=== PATIENT | male | born 1975 | race Caucasian/White ===

== ENCOUNTER → 2020-08-23 19:35 | Outpatient (ROUT) | payer SELFPAY | PROVIDERS: Visit Provider Dermatology | DX: L02.219 Cutaneous abscess of trunk, unspecified (principal) | CPT/HCPCS: 87070; 87075; 87205 ==

== ENCOUNTER → 2022-01-01 09:36 | Outpatient (CLI) | payer OTHER, SELFPAY ==
[2022-01-01 10:52] LABS: Add Manual Diff / Slide Review NO; Basophils Absolute Auto 100 /uL (0-100); Basophils Percent Auto 1.9 % (0-2); Eosinophils Absolute Auto 100 /uL (0-450); Eosinophils Percent Auto 1.1 % (2-4); Hematocrit 44.1 % (41-53); Lymphocytes Absolute Auto 1600 /uL (1100-4500); Lymphocytes Percent Auto 28.4 % (25-40); Mean Corpuscular HGB Conc 34.1 % (30-36); Mean Corpuscular Hemoglobin 30.1 PG (26-34); Mean Corpuscular Volume 88.1 fL (80-100); Monocytes Absolute Auto 600 /uL (0-900); Monocytes Percent Auto 11.2 % (3-14); Neutrophils Absolute Auto 3100 /uL (1500-7000); Neutrophils Percent Auto 57.4 % (50-75); Platelet Count 196 X10^3/uL (150-400); Red Cell Distribution Width 13.1 % (11.6-14.8); White Blood Cell Count 5.5 X10^3/uL (4.5-11.0)
[2022-01-01 11:08] LABS: Alanine Aminotransferase 21 IU/L (<50); Albumin 4.3 g/dL (3.5-5.0); Albumin Globulin Ratio 1.4 (1.0-2.8); Alkaline Phosphatase 106 U/L (38-126); Aspartate Aminotransferase 26 IU/L (17-59); BUN Creatinine Ratio 14.4 (6-22); Bilirubin Total 0.7 mg/dL (0.2-1.3); Blood Urea Nitrogen 14 mg/dL (9-20); Calcium 9.5 mg/dL (8.4-10.2); Carbon Dioxide 27 mmol/L (22-32); Chloride 103 mmol/L (98-107); Cholesterol 205 mg/dL (140-199); Estimated Glomerular Filt Rate > 60 mL/min (>60); Globulin 3.1 g/dL (1.7-4.1); Glucose 94 mg/dL (70-100); HDL Cholesterol 44 mg/dL (40-60); HEMOLYSIS < 15 (0-50); LDL Cholesterol Calculated 121 mg/dL (<100); Potassium 4.5 mmol/L (3.4-5.1); Sodium 138 mmol/L (137-145); Total Protein 7.4 g/dL (6.3-8.2); Triglycerides 199 mg/dL (35-150)
[2022-01-01 11:24] LABS: Vitamin D 25 Hydroxy (D3) 32.2 ng/mL (30.0-100.0)
[2022-01-01 11:38] LABS: Prostate Specific Antigen Scrn 1.42 ng/mL (0.1-4.0)
[2022-01-12 12:57] LABS: Percent Free Testosterone 2.38 % (1.50-4.20); Testosterone Free 8.88 ng/dL (5.00-21.00); Testosterone Total 373.3 ng/dL (264.0-916.0)
== END ==
PROVIDERS: PCP Family Medicine; Referring Provider Family Medicine; Visit Provider Family Medicine
DX: R06.81 Apnea, not elsewhere classified (principal); R53.83 Other fatigue; Z13.220 Encounter for screening for lipoid disorders; Z80.42 Family history of malignant neoplasm of prostate; Z12.5 Encounter for screening for malignant neoplasm of prostate
CPT/HCPCS: 36415; 80053; 80061; 82306; 84402; 84403; 85025; G0103

== ENCOUNTER → 2025-01-14 08:32 | Outpatient (CLI) | payer OTHER, SELFPAY ==
[2025-01-14 09:20] LABS: Add Manual Diff / Slide Review NO; Hematocrit 44.9 % (41-53); Hemoglobin 15.2 g/dL (13.5-17.5); Lymphocytes Absolute Auto 1600 /uL (1100-4500); Mean Corpuscular HGB Conc 33.8 % (30-36); Mean Corpuscular Hemoglobin 29.9 PG (26-34); Mean Corpuscular Volume 88.4 fL (80-100); Platelet Count 209 X10^3/uL (150-400)
[2025-01-14 09:41] LABS: Alanine Aminotransferase 21 IU/L (<50); Albumin 4.6 g/dL (3.5-5.0); Albumin Globulin Ratio 1.6 (1.0-2.8); Alkaline Phosphatase 126 U/L (38-126); Blood Urea Nitrogen 17 mg/dL (9-20); Calcium 9.7 mg/dL (8.4-10.2); Carbon Dioxide 24 mmol/L (22-32); Chloride 103 mmol/L (98-107); Cholesterol 170 mg/dL (140-199); Estimated Glomerular Filt Rate > 60 mL/min (>60); Globulin 2.9 g/dL (1.7-4.1); Glucose 87 mg/dL (70-99); HDL Cholesterol 47 mg/dL (40-60); HEMOLYSIS < 15 (0-50); Potassium 4.3 mmol/L (3.4-5.1); Sodium 136 mmol/L (137-145); Total Protein 7.5 g/dL (6.3-8.2); Triglycerides 137 mg/dL (35-150)
[2025-01-14 10:16] LABS: TSH w/ Reflex to FT4 1.44 uIU/mL (0.47-4.68)
[2025-01-14 12:57] LABS: Vitamin B12 859 pg/mL (239-931)
== END ==
LOC: LAB 08:34
PROVIDERS: PCP Family Medicine; Referring Provider Family Medicine; Visit Provider Family Medicine
DX: R53.83 Other fatigue (principal); E78.2 Mixed hyperlipidemia; Z12.5 Encounter for screening for malignant neoplasm of prostate
CPT/HCPCS: 36415; 80053; 80061; 82607; 84402; 84403; 84443; 85025; G0103

== ENCOUNTER → 2025-01-18 16:41 | Outpatient (CLI) | payer OTHER, SELFPAY ==
--- NOTE | 2025-01-18 16:43 | DI.RAD.S_ITS ---
PROCEDURE: XR HAND RT MIN 3V INDICATIONS: FINGER PAIN RT TECHNIQUE: 3 views of the hand(s) acquired. COMPARISON: None. FINDINGS: Bones: Mild deformity 5th metacarpal represents an old unified fracture. Moderate diffuse demineralization changes noted . Joints: Mild degeneration distal radial ulnar STT 1st CMC and all MCP and interphalangeal joints . Soft tissues: No soft tissue abnormality. IMPRESSION: Degeneration. Dictated by: Francisco J Doran M.D. on 01/19/2025 at 10:54 Approved by: Francisco J Doran M.D. on 01/19/2025 at 10:55
== END ==
PROVIDERS: PCP Family Medicine; Referring Provider Family Medicine; Visit Provider Family Medicine
DX: M18.11 Unilateral primary osteoarthritis of first carpometacarpal joint, right hand (principal); M19.041 Primary osteoarthritis, right hand; M19.031 Primary osteoarthritis, right wrist; M79.644 Pain in right finger(s)
CPT/HCPCS: 73130